=== PATIENT | male | born 1940 | race Caucasian/White ===

== ENCOUNTER 2019-07-07 15:41 | Inpatient (IN) | payer BC, MEDICARE ==
--- NOTE | 2019-07-07 16:27 | XRAY Report ---
Reason: cough with fever Procedure Date: 07/07/2019 Accession Number: [id number] / [id number] Procedure: XR - Chest 2 View X-Ray CPT Code: 29982 Final Report FULL RESULT: EXAM: CHEST RADIOGRAPHY EXAM DATE: 07/07/2019 04:21 PM. CLINICAL HISTORY: Cough with fever. COMPARISON: None. TECHNIQUE: 2 views. FINDINGS: Lungs/Pleura: No focal opacities evident. No pleural effusion. No pneumothorax. No pulmonary vascular congestion or interstitial edema. Normal volumes. Mediastinum: The cardiac silhouette size is normal. Tortuous thoracic aorta. Other: Multilevel thoracic spondylosis. Multiple healed posterior lateral left rib fractures. IMPRESSION: No radiographic evidence of acute cardiopulmonary disease. RADIA
[2019-07-07 16:50] LABS: BASOPHILS % (AUTO) 0.3 %; EOSINOPHILS # (AUTO) 0.1 10^3/uL (0.0-0.7); EOSINOPHILS % (AUTO) 1.5 %; HGB - HEMOGLOBIN 12.1 g/dL (14.0-18.0); LYMPHOCYTES % (AUTO) 14.9 %; MEAN CORPUSCULAR HEMOGLOBIN 32.1 pg (27.0-31.0); MEAN CORPUSCULAR HGB CONC 33.8 g/dL (32.0-36.0); MEAN PLATELET VOLUME 9.4 fL (7.4-11.4); MONOCYTES # (AUTO) 0.8 10^3/uL (0.0-1.0); MONOCYTES % (AUTO) 11.2 %; NEUTROPHILS # (AUTO) 4.8 10^3/uL (1.5-6.6); PLT - PLATELET COUNT 153 10^3/uL (130-450); RED BLOOD COUNT 3.77 10^6/uL (4.70-6.10); RED CELL DISTRIBUTION WIDTH 13.5 % (12.0-15.0); WHITE BLOOD COUNT 6.7 x10^3/uL (4.8-10.8)
[2019-07-07 17:05] LABS: ALBUMIN 3.9 g/dL (3.2-5.5); ALBUMIN/GLOBULIN RATIO 0.9 (1.0-2.2); BILIRUBIN,TOTAL 0.8 mg/dL (0.2-1.0); CALCIUM 8.4 mg/dL (8.5-10.3); CREATININE 0.8 mg/dL (0.6-1.2); TOTAL PROTEIN 8.2 g/dL (6.7-8.2)
[2019-07-07 17:26] LABS: BILIRUBIN,URINE NEGATIVE (NEGATIVE); GLUCOSE, URINE (UA) NEGATIVE (NEGATIVE); KETONES,URINE (UA) TRACE mg/dL (NEGATIVE); LEUKOCYTE ESTERASE, URINE NEGATIVE (NEGATIVE); NITRITE,URINE NEGATIVE (NEGATIVE); OCCULT BLOOD,URINE TRACE-INTA (NEGATIVE); PROTEIN,URINE TRACE mg/dL (NEGATIVE); UROBILINOGEN,URINE 0.2 (NORMAL) E.U./dL (NORMAL)
[2019-07-07 17:29] LABS: CLARITY,URINE CLEAR (CLEAR)
[2019-07-07] MEDS ORDERED: SODIUM CHLORIDE 0.9% 1,000 ML IV ONE ×2 (17:42→20:00)
[2019-07-07] MEDS ORDERED: ONDANSETRON 4 MG/2 ML VIAL IVP STA ×2 (18:13→20:03)
--- NOTE | 2019-07-07 18:14 | ED Physician Documentation ---
History of Present Illness - Stated complaint Stated Complaint: VOMITING X4 DAYS, POSSIBLE PN - PCP REFERRAL - Chief complaint Chief Complaint: Resp - History obtained from History obtained from: Patient, Family - History of Present Illness Timing: How many days ago (4) Pain level max: 0 Pain level now: 0 - Additonal information Additional information: 78-year-old male presents to the emergency department today with nausea and vomiting for the past 4 days. Nothing makes it better or worse. He feels weak and dehydrated. Also has a cough. Intermittent fevers up to 101 at home. No chest pain. No abdominal pain. No diarrhea. Saw his doctor today who referred him here for possible pneumonia. Review of Systems Ten Systems: 10 systems reviewed and negative Constitutional: reports: Fever, Chills Nose: denies: Rhinorrhea / runny nose, Congestion Respiratory: denies: Cough GI: reports: Nausea, Vomiting, Diarrhea Skin: denies: Rash Musculoskeletal: denies: Neck pain, Back pain Neurologic: denies: Headache PD PAST MEDICAL HISTORY - Past Medical History Past Medical History: Yes Cardiovascular: High cholesterol Respiratory: Sleep apnea, CPAP use Neuro: None Endocrine/Autoimmune: HyPOthyroidism GI: Chronic constipation : Benign prostate hypertrophy HEENT: Chronic vision loss, Glaucoma Psych: None Musculoskeletal: Osteoarthritis, Chronic back pain Derm: Psoriasis - Past Surgical History Past Surgical History: Yes General: Colonoscopy, Other HEENT: Cataracts - Present Medications Home Medications: Ambulatory Orders Medication Instructions Recorded Confirmed Ascorbic Acid [Vitamin C] 500 mg PO DAILY 10/13/12 01/03/15 Aspirin Chewable [St Amaury 81 mg PO ONCE 10/13/12 01/03/15 Aspirin] Cholecalciferol (Vitamin D3) 2,000 unit PO DAILY 10/13/12 01/03/15 [Vitamin D-3] Glucosamine Sulfate Dipot Chlr 1,000 mg PO DAILY 10/13/12 01/03/15 [Glucosamine] Levothyroxine [Synthroid] 50 mcg PO QDAC 10/13/12 01/03/15 Rosuvastatin Calcium [Crestor] 5 mg PO DAILY 10/13/12 01/03/15 Tadalafil [Cialis] 2.5 mg PO DAILY 10/13/12 01/03/15 Calcium Carbonate [Calcium] 600 mg PO DAILY 01/03/15 01/03/15 Clindamycin Phosphate 60 ml TP DAILY 01/03/15 01/03/15 Dorzolamide HCl/Timolol Maleat 10 ml OP DAILY 01/03/15 01/03/15 [Dorzolamide-Timolol Eye Drops] Iron,Carb/Vit C/Vit B12/Folic 1 each PO DAILY 01/03/15 01/03/15 [Iron 100 Plus Tablet] Magnesium Oxide [Magnesium] 250 mg PO DAILY 01/03/15 01/03/15 Metronidazole [Metrocream] 45 gm TP DAILY 01/03/15 01/03/15 [place]-3 Fatty Acids [Fish Oil] 300 mg PO DAILY 01/03/15 01/03/15 - Allergies Allergies/Adverse Reactions: Allergies Allergy/AdvReac Type Severity Reaction Status Date / Time tetracycline [Tetracycline] AdvReac Mild Anxiety Verified 10/13/12 07:53 - Social History Does the pt smoke?: No Smoking Status: Never smoker Does the pt drink ETOH?: No Does the pt have substance abuse?: No PD ED PE NORMAL - Vitals Vital signs reviewed: Yes - General General: Alert and oriented X 3, No acute distress, Well developed/nourished - HEENT HEENT: Moist mucous membranes - Neck Neck: Supple, no meningeal sign - Cardiac Cardiac: RRR, Strong equal pulses - Respiratory Respiratory: Other (rhonchi B) - Abdomen Abdomen: Soft, Non tender, Non distended - Back Back: No spinal TTP - Derm Derm: Warm and dry, No rash - Extremities Extremities: No edema - Neuro Neuro: Alert and oriented X 3 - Psych Psych: Normal mood, Normal affect Results - Vitals Vitals: Vital Signs - 24 hr 07/07/19 07/07/19 07/07/19 15:58 18:05 18:44 Temperature 37.7 C H 38.5 C H Heart Rate 94 93 Respiratory 18 16 Rate Blood Pressure 132/65 H 113/67 O2 Saturation 94 93 88 L 07/07/19 07/07/19 18:45 18:47 Temperature Heart Rate Respiratory Rate Blood Pressure O2 Saturation 86 L 99 Oxygen O2 Source Nasal cannula - Labs Labs: Laboratory Tests 07/07/19 07/07/19 07/07/19 16:20 16:42 16:42 WBC 6.7 RBC 3.77 L Hgb 12.1 L Hct 35.8 L MCV 95.0 H MCH 32.1 H MCHC 33.8 RDW 13.5 Plt Count 153 MPV 9.4 Neut # (Auto) 4.8 Lymph # (Auto) 1.0 L [place] # (Auto) 0.8 Eos # (Auto) 0.1 Baso # (Auto) 0.0 Absolute Nucleated RBC 0.00 Nucleated RBC % 0.0 Sodium 134 L Potassium 3.7 Chloride 96 L Carbon Dioxide 28 Anion Gap 10.0 BUN 18 Creatinine 0.8 Estimated GFR (MDRD) 93 Glucose 130 H Lactic Acid Calcium 8.4 L Total Bilirubin 0.8 AST 35 ALT 31 Alkaline Phosphatase 43 Total Protein 8.2 Albumin 3.9 Globulin 4.3 H Albumin/Globulin Ratio 0.9 L Lipase 28 Urine Color DARK YELLOW Urine Clarity CLEAR Urine pH 6.0 Ur Specific [place] 1.025 Urine Protein TRACE Urine Glucose (UA) NEGATIVE Urine Ketones TRACE Urine Occult Blood TRACE-INTA Urine Nitrite NEGATIVE Urine Bilirubin NEGATIVE Urine Urobilinogen 0.2 (NORMAL) Ur Leukocyte Esterase NEGATIVE Ur Microscopic Review NOT INDICATED Urine Culture Comments NOT INDICATED Influenza A (Rapid) Influenza B (Rapid) 07/07/19 07/07/19 19:00 19:13 WBC RBC Hgb Hct MCV MCH MCHC RDW Plt Count MPV Neut # (Auto) Lymph # (Auto) [place] # (Auto) Eos # (Auto) Baso # (Auto) Absolute Nucleated RBC Nucleated RBC % Sodium Potassium Chloride Carbon Dioxide Anion Gap BUN Creatinine Estimated GFR (MDRD) Glucose Lactic Acid 1.2 Calcium Total Bilirubin AST ALT Alkaline Phosphatase Total Protein Albumin Globulin Albumin/Globulin Ratio Lipase Urine Color Urine Clarity Urine pH Ur Specific [place] Urine Protein Urine Glucose (UA) Urine Ketones Urine Occult Blood Urine Nitrite Urine Bilirubin Urine Urobilinogen Ur Leukocyte Esterase Ur Microscopic Review Urine Culture Comments Influenza A (Rapid) POSITIVE H Influenza B (Rapid) Negative - Rads (name of study) cxr Radiology: Prelim report reviewed, EMP read contemporaneously, See rad report (No radiographic evidence of acute cardiopulmonary disease. ) PD MEDICAL DECISION MAKING - ED course Complexity details: reviewed results, re-evaluated patient, considered differential, d/w patient ED course: Patient is positive for influenza A. He is hypoxic, 86% on room air in the and is not tolerating p.o. very well. Given Tamiflu here. We will hold antibiotics at this time. No pneumonia on chest x-ray. Discussed the case with Dr. Shen, hospitalist who accepts This document was made in part using voice recognition software. While efforts are made to proofread this document, sound alike and grammatical errors may occur. Departure - Departure Disposition: 66 [facility] DC/Xfer Clinical Impression: Hypoxia, Influenza A Fever Qualifiers: Fever type: unspecified Qualified Code(s): R50.9 - Fever, unspecified Condition: Stable
[2019-07-07] MEDS ORDERED: BENZONATATE 100 MG CAPSULE PO STA (18:32)
[2019-07-07] MEDS ORDERED: OSELTAMIVIR 75 MG CAPSULE PO STA (20:17)
[2019-07-07] MEDS ORDERED: oxyCODONE 5 MG TABLET PO PRN (20:18)
[2019-07-07] MEDS ORDERED: ONDANSETRON 4 MG/2 ML VIAL IVP PRN (20:18)
[2019-07-07] MEDS ORDERED: ONDANSETRON ODT 4 MG TABLET TL PRN (20:18)
[2019-07-07] MEDS ORDERED: SODIUM CHLORIDE FLUSH 0.9% 10 ML SYRINGE IVP PRN (20:18)
--- NOTE | 2019-07-07 20:31 | HISTORY & PHYSICAL EXAMINATION ---
Chief Complaint - Chief Complaint Chief Complaint: vomitting for 4 days History of Present Illness - Admitted From Admitted From:: Home/ER - History Obtained From Records Reviewed: [facility] History obtained from: Dr. Christina and patient Exam Limitations: none - History of Present Illness HPI Comment/Other: 78-year-old white male whose main medical issues consist of obstructive sleep apnea and hypertension but is otherwise healthy and now presents with myalgias, vomiting for 4 days abrupt in onset. Fevers have been as high as 101. Dry nonproductive cough. Anorexia is present but no diarrhea or abdominal pain. This illness is the most recent manifestation of what he feels is a cold that started 10 days ago. Sore throat, rhinorrhea, sinus congestion, coryza and eustachian tube dysfunction all resolved after starting 10 days ago. Seemed to have a couple of days of wellness and then this most recent illness started. 2 days ago he was so weak with a lack of p.o. intake, and the vomiting that he slipped to the floor in the bathroom trying to get off the toilet. Needed his son and his grandson to get him up. No one else is sick but him. He has not had any recent travel history. He was seen by his PCP today who referred him to the emergency room to make sure he did not have pneumonia. He was evaluated by Dr. Padilla and his temperature is 38.5 in the emergency room with a heart rate in the 90s. Respirations are 16-18. Normotensive at 132/65 but he is hypoxic to 88% on room air. White cell count is normal. And chest x-ray has no acute cardiopulmonary changes. He is, however, positive for influenza A. He is now admitted for hypoxia in the face of influenza. History - Past Medical History Cardiovascular: reports: Hypertension, High cholesterol Respiratory: reports: Sleep apnea, CPAP use Neuro: reports: None Endocrine/Autoimmune: reports: HyPOthyroidism GI: reports: Chronic constipation : reports: Benign prostate hypertrophy HEENT: reports: Chronic vision loss, Glaucoma Psych: reports: None Musculoskeletal: reports: Osteoarthritis, Chronic back pain Derm: reports: Psoriasis MRSA Hx?: Yes - Past Surgical History General: reports: Colonoscopy, Other (umbilical hernia repair) HEENT: reports: Cataracts, Tonsil/Adenoidectomy (age 5) - Family & Social History Family History Comment/Other: Mom at age 85 of a stroke. Dad at age 85 of complications of alcoholism, hypertension, and an unknown type of cancer. 1 [facility] is alive and [facility]. 2 children. Both sons. One son is slightly overweight, and unfortunately the second son has problems with alcoholism. Living arrangement: At home Living Situation: With spouse/s.o. Social History Notes: Most of his life is spent in [facility] in [place]. He still over the [employer] from [id number]. Has been twice. First marriage "did not take" but he did have 2 children with his first . his second and she brought 2 children with her. So they had a combined household of 4 children. He smoked only when he was in the [employer] for 3 years. Has never had a problem with alcohol abuse or recreational substance abuse. 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 He retired and moved to [facility] 20 years ago. They wanted to be closer to their son because their grandchildren were here. He and his both live in their own home, still very independent. He says that they are surrounded by a carissa grandchildren and great-grandchildren. They are looking forward to their first great great grandchild but his youngest great-grandchild is only 14. - Substance History Use: Uses substance without health or social issues: NONE Abuse: Recurrent use of substance despite neg consequences: NONE Dependence: Experiences withdrawal or developed tolerances: NONE - POLST Patient has POLST: No POLST Status: Full Code (He has advanced directive that needs to be brought in and copied) Meds/Allgy - Home Medications Home Medications: Ambulatory Orders Medication Instructions Recorded Confirmed Ascorbic Acid [Vitamin C] 500 mg PO DAILY 10/13/12 01/03/15 Aspirin Chewable [St Amaury 81 mg PO ONCE 10/13/12 01/03/15 Aspirin] Cholecalciferol (Vitamin D3) 2,000 unit PO DAILY 10/13/12 01/03/15 [Vitamin D-3] Glucosamine Sulfate Dipot Chlr 1,000 mg PO DAILY 10/13/12 01/03/15 [Glucosamine] Levothyroxine [Synthroid] 50 mcg PO QDAC 10/13/12 01/03/15 Rosuvastatin Calcium [Crestor] 5 mg PO DAILY 10/13/12 01/03/15 Tadalafil [Cialis] 2.5 mg PO DAILY 10/13/12 01/03/15 Calcium Carbonate [Calcium] 600 mg PO DAILY 01/03/15 01/03/15 Clindamycin Phosphate 60 ml TP DAILY 01/03/15 01/03/15 Dorzolamide HCl/Timolol Maleat 10 ml OP DAILY 01/03/15 01/03/15 [Dorzolamide-Timolol Eye Drops] Iron,Carb/Vit C/Vit B12/Folic 1 each PO DAILY 01/03/15 01/03/15 [Iron 100 Plus Tablet] Magnesium Oxide [Magnesium] 250 mg PO DAILY 01/03/15 01/03/15 Metronidazole [Metrocream] 45 gm TP DAILY 01/03/15 01/03/15 [place]-3 Fatty Acids [Fish Oil] 300 mg PO DAILY 01/03/15 01/03/15 - Allergies Allergies/Adverse Reactions: Allergies Allergy/AdvReac Type Severity Reaction Status Date / Time tetracycline [Tetracycline] AdvReac Mild Anxiety Verified 10/13/12 07:53 Review of Systems - Constitutional Constitutional: reports: Fatigue, Fever, Chills, Malaise, Weakness, Poor appetite, Diaphoresis, Other (All of these complaints have been acute in the last 4 to 5 days.) - Eyes Eyes: denies: Pain, Irritation, Amaurosis, Blurred vision, Vision loss - Ears, Nose & Throat Ears, Nose & Throat: reports: Hoarseness. denies: Ear pain, Vertigo, Nasal pain, Nasal discharge - Cardiovascular Cariovascular: reports: Lightheadedness, Exertional dyspnea, Decr. exercise tolerance. denies: Irregular heart rate, Palpitations, Chest pain, Edema, Syncope - Respiratory Respiratory: reports: Cough, Snoring, SOB at rest, SOB with exertion, Apnea. denies: Sputum production, Wheezing - Gastrointestinal Gastrointestinal: denies: Abdominal pain, Abdominal distention, Constipation, Diarrhea - Genitourinary Genitourinary: reports: Nocturia. denies: Dysuria, Frequency - Musculoskeletal Musculoskeletal: reports: Muscle pain (the last few days), Muscle weakness (the last 2 days), Joint pain (especially in knees, but this is the only joint ache that slows him down overall) - Integumentary Integumentary: denies: Rash, Pruritis - Neurological Neurological: reports: General weakness. denies: Focal weakness, Headache, Dizziness, Memory problems, Pre-existing deficit, Seizures - Psychiatric Psychiatric: denies: Depression, Anxiety, Suicidal - Endocrine Endocrine: denies: Polyuria, Polydypsia - Hematologic/Lymphatic Hematologic/Lymphatic: denies: Anemia, Bruising, Petechiae Prior Level of Functionality: He regards himself is independent. He uses no durable medical equipment. Still drives a car. Pays his own bills. Is able to complete all his activities of daily living without any assist. Lives with his in their own home. Exam - Vital Signs Reviewed Vital Signs: Yes Vital Signs: Vital Signs x48h Temp Pulse Resp BP Pulse Ox 07/07/19 18:47 99 07/07/19 18:45 86 L 07/07/19 18:44 88 L 07/07/19 18:05 38.5 C H 93 16 113/67 93 07/07/19 15:58 37.7 C H 94 18 132/65 H 94 - Physical Exam General Appearance: positive: No acute distress, Alert, Other (Very fatigued appearing elderly gentleman who looks stated age and is in no acute distress but very dry) Eyes Bilateral: positive: PERRL, EOMI ENT: positive: Dry mucous membranes, Other (Hoarse voice, slightly nasal tone) Neck: positive: No JVD, Lymphadenopathy (R) (Shotty), Lymphadenopathy (L) (Shotty). negative: Stiff neck, Carotid bruit Respiratory: positive: Chest non-tender. negative: Wheezes, Rales, Rhonchi Cardiovascular: positive: Regular rate & rhythm. negative: Systolic murmur, Gallop/S4 Peripheral Pulses: positive: 1+ Abdomen: positive: Non-tender, No organomegaly, Nml bowel sounds, No distention Skin: positive: Warm, Dry, Other (Has a slight skin abrasion over his right eyebrow, and a round Band-Aid on his right zygomatic arch. Recently seen by his scrummaster for "burning off some things") Extremities: positive: Non-tender, No pedal edema, Other (Hands are cold with the right hand colder than the left. Feet are warm. Overall skin is warm.) Neurologic/Psychiatric: positive: Oriented x3, CN's nml (2-12), Motor nml Conclusion/Plan - Problem List (1) Influenza A Conclusion/Plan: Supportive care at this time for this elderly gentleman who is hypoxic with his influenza. He received IV fluids to replace any insensate fluid losses with someone who is short of breath and febrile. He will receive antipyretics, antiemetics. Start on Tamiflu twice daily for 9 more doses since he is received 1 dose in the emergency room. At this time no empiric antibiotics since chest x-ray is negative. He will be at risk for staph pneumonia and will be closely monitored. (2) Hypoxia Conclusion/Plan: Supplement with nasal cannula oxygenation to maintain O2 sats greater than 92%. Continue to monitor closely for possible complications such as staph pneumonia. (3) Dehydration Conclusion/Plan: Present on physical exam. BUN and creatinine are normal. He has had minimal p.o. intake for the last few days. Plan: IV fluids, monitor intake and output, will stop IV fluids once he is eating and drinking enough on his own - Lab Results Lab results reviewed: Yes Fish Bones: 07/07/19 16:42 07/07/19 16:42 - Diagnostic Imaging Results Diagnostic Imaging Results: positive: Final report reviewed Diagnostic Imaging Results Comments: Chest x-ray without acute cardiopulmonary process Core Measures - Anticipated LOS I expect patient to be DC'd or transferred within 96 hours.: Yes - DVT/VTE - Prophylaxis VTE/DVT Device ordered at admit?: Yes
[2019-07-07] MEDS: ACETAMINOPHEN 325 MG TABLET PO SCH (21:25)
[2019-07-07] MEDS: SODIUM CHLORIDE 0.9% 1,000 ML IV SCH (21:25)
[2019-07-07] MEDS ORDERED: guaiFENesin/CODEINE 5 ML UDC PO STA (21:46)
[2019-07-07] MEDS ORDERED: PROCHLORPERAZINE 10 MG/2 ML VIAL IVP PRN (21:46)
--- NOTE | 2019-07-07 21:51 | HISTORY & PHYSICAL EXAMINATION ---
Chief Complaint - Chief Complaint Chief Complaint: Nausea and vomiting, cough History of Present Illness - Admitted From Admitted From:: Emergency room - History Obtained From Records Reviewed: Yes History obtained from: Patient and chart Exam Limitations: None - History of Present Illness HPI Comment/Other: Mr. Lentz is a 78 year old gentleman with a PMH of [place] wears CPAP at night, hypothyroid, hypertension, hypercholestemia who presents with vomiting and nausea for the last 4-5 days with productive cough. He reports that 10-12 days ago he developed a cold. The could went and away and then came with a worsening productive cough and nausea and vomiting. Patient then became dehydrated and fell off the toilet. He did not hit his head, but his son who lives near by had to come over and help him up. In the ER, the patient was hypoxic to 88% on room air, and has need O2 per nasal cannula to keep his sats above 92%. T-max was 38.5. Labs notable for mid hyponatremia 134, potassium 3.7, Hgb/Hct 12.1/358, WBC 6.7, Lactate 1.2, glucose 130. Influenza A positive. Chest x-ray with no radiographic evidence of acute pulmonary disease. Patient given 1L NS, a dose of tamiflu. Will admit to inpatient. History - Past Medical History Cardiovascular: reports: Hypertension, High cholesterol Respiratory: reports: Sleep apnea, CPAP use Neuro: reports: None Endocrine/Autoimmune: reports: HyPOthyroidism GI: reports: Chronic constipation : reports: Benign prostate hypertrophy HEENT: reports: Chronic vision loss, Glaucoma Psych: reports: None Musculoskeletal: reports: Osteoarthritis, Chronic back pain Derm: reports: Psoriasis MRSA Hx?: No - Past Surgical History General: reports: Colonoscopy, Other (umbilical hernia repair) HEENT: reports: Cataracts, Tonsil/Adenoidectomy (age 5) Derm: reports: Other (Skin biopsy to right zygomatic arch recent-with bandaid covering.) - Family & Social History Family History: Mother: , CVA/TIA, Father: , Alcoholism, Cancer, Hypertension Living arrangement: At home Living Situation: With spouse/s.o. - Substance History Use: Uses substance without health or social issues: Tobacco (Former tobacco smoker when he was in the [employer]-3 years), Alcohol (1-2 drinks per month when he goes out to dinner.) Abuse: Recurrent use of substance despite neg consequences: NONE - POLST Patient has POLST: No POLST Status: Full Code Meds/Allgy - Home Medications Home Medications: Ambulatory Orders Medication Instructions Recorded Confirmed Ascorbic Acid [Vitamin C] 500 mg PO DAILY 10/13/12 01/03/15 Aspirin Chewable [St Amaury 81 mg PO ONCE 10/13/12 01/03/15 Aspirin] Cholecalciferol (Vitamin D3) 2,000 unit PO DAILY 10/13/12 01/03/15 [Vitamin D-3] Glucosamine Sulfate Dipot Chlr 1,000 mg PO DAILY 10/13/12 01/03/15 [Glucosamine] Levothyroxine [Synthroid] 50 mcg PO QDAC 10/13/12 01/03/15 Rosuvastatin Calcium [Crestor] 5 mg PO DAILY 10/13/12 01/03/15 Tadalafil [Cialis] 2.5 mg PO DAILY 10/13/12 01/03/15 Calcium Carbonate [Calcium] 600 mg PO DAILY 01/03/15 01/03/15 Clindamycin Phosphate 60 ml TP DAILY 01/03/15 01/03/15 Dorzolamide HCl/Timolol Maleat 10 ml OP DAILY 01/03/15 01/03/15 [Dorzolamide-Timolol Eye Drops] Iron,Carb/Vit C/Vit B12/Folic 1 each PO DAILY 01/03/15 01/03/15 [Iron 100 Plus Tablet] Magnesium Oxide [Magnesium] 250 mg PO DAILY 01/03/15 01/03/15 Metronidazole [Metrocream] 45 gm TP DAILY 01/03/15 01/03/15 [place]-3 Fatty Acids [Fish Oil] 300 mg PO DAILY 01/03/15 01/03/15 Desonide [Desowen] 07/07/19 Ezetimibe/Simvastatin 1 each PO 07/07/19 [Ezetimibe-Simvastatin 10-20 mg] Metronidazole 1% Gel [Metrogel] 07/07/19 Trospium Chloride [Trospium 07/07/19 Chloride ER] - Allergies Allergies/Adverse Reactions: Allergies Allergy/AdvReac Type Severity Reaction Status Date / Time tetracycline [Tetracycline] AdvReac Mild Anxiety Verified 10/13/12 07:53 Review of Systems - Constitutional Constitutional: reports: Fatigue, Fever, Weakness, Poor appetite - Eyes Eyes: reports: Vision loss, Corrective lenses - Ears, Nose & Throat Ears, Nose & Throat: reports: Sore throat, Hoarseness - Cardiovascular Cariovascular: denies: Irregular heart rate, Edema - Respiratory Respiratory: reports: Cough, Sputum production. denies: Wheezing, Hemoptysis - Gastrointestinal Gastrointestinal: reports: Nausea, Vomiting, Poor appetite. denies: Diarrhea - Genitourinary Genitourinary: reports: Other (See urologist for incontinence of urine) - Musculoskeletal Musculoskeletal: reports: Back pain, Joint pain - Integumentary Integumentary: reports: Lesions (Skin biopsy site to right zygomatic arch by planning coordinator recently. Sees Drier every 6 months.) - Neurological Neurological: denies: Numbness, Seizures - Psychiatric Psychiatric: denies: Depression, Anxiety - Endocrine Endocrine: denies: Polyuria, Polydypsia - All Other Systems All Other Systems: reports: Reviewed and negative Prior Level of Functionality: Patient lives in a house with his . He drives, shops, pays bills and keeps u p his home. Exam - Vital Signs Reviewed Vital Signs: Yes Vital Signs: Vital Signs x48h Temp Pulse Pulse Resp BP BP Pulse Ox 07/07/19 21:00 38.3 C H 103 H 24 101/51 L 97 07/07/19 18:47 99 07/07/19 18:45 86 L 07/07/19 18:44 88 L 07/07/19 18:05 38.5 C H 93 16 113/67 93 07/07/19 15:58 37.7 C H 94 18 132/65 H 94 - Physical Exam General Appearance: positive: No acute distress, Alert Eyes Bilateral: positive: Normal inspection, PERRL, EOMI ENT: positive: ENT inspection nml Neck: positive: Nml inspection, Trachea midline Respiratory: positive: Chest non-tender, No respiratory distress, Breath sounds nml, Other (Strong and productive cough) Cardiovascular: positive: Regular rate & rhythm, No murmur, No gallop Peripheral Pulses: positive: 2+ Abdomen: positive: Non-tender, Nml bowel sounds, No distention Back: positive: Nml inspection Skin: positive: Color nml, Other (Hands cool R>L, feet warm) Extremities: positive: Full ROM, Nml appearance Neurologic/Psychiatric: positive: Oriented x3, Mood/affect nml Conclusion/Plan - Problem List (1) Influenza A Conclusion/Plan: Patient started with a cold 10-12 days ago, which he reports 'went away' and then came with a productive cough. Patient had nausea/vomiting and became dehydrated. Influenza A positive. First dose of tamiflu given in the ER. 1. Treat with tamiflu BID for 48 hours. 2. Provide supportive care with IV fluids, cough suppressant, routine tylenol. (2) Hypoxia Conclusion/Plan: Patient has had a productive cough for 4-5 days. He has a hoarse voice and sore throat. Nausea/vomiting for several days. O2 sats in the ER on room air was 88%. Chest x-ray had no evidence of pulmonary disease. 1. O2 per nasal cannula to keep sats greater than 92%. 2. Cough suppressant for comfort. 3. Monitor patient's O2 sat every 8 hours. 4. Consider additional chest x-ray if patient has desaturation on supplemental oxygen. 5. Bleed in oxygen to patient's home CPAP (patient wears for [place]). (3) Obstructive sleep apnea on CPAP Conclusion/Plan: Patient's brought in his home CPAP machine. 1. RT to set up and bleed in oxygen to keep sats >92%. 2. Patient to wear while sleeping. (4) Dehydration Conclusion/Plan: Patient reports decrease in appetite, nausea/vomiting for 4-5 days. He believes that the dehydration led to him falling off the toilet, requiring his son to have to come to his house and help him up. Patient's oral mucosa appears moist. Urine sample dark and concentrated. Patient hyponatremic. Patient received 1L NS per IV in the ER. 1. Continue IV hydration with NS at 100ml/hr. 2. Encourage oral hydration and have fluids available at bedside for patient to consume. 3. Strict I&Os. (5) Fever Conclusion/Plan: T-max 38.5 in the ER. 1. Routine tylenol for patient. 2. IV fluid hydration and oral hydration to prevent volume depletion from insensible losses. Qualifiers: Fever type: unspecified Qualified Code(s): R50.9 - Fever, unspecified - Lab Results Lab results reviewed: Yes Fish Bones: 07/07/19 16:42 07/07/19 16:42 - Diagnostic Imaging Results Diagnostic Imaging Results: positive: Final report reviewed, See rad report
[2019-07-08] MEDS: ACETAMINOPHEN 325 MG TABLET PO SCH ×4 (03:16→20:15)
[2019-07-08] MEDS: SODIUM CHLORIDE FLUSH 0.9% 10 ML SYRINGE IVP SCH ×3 (03:21→17:43)
[2019-07-08] MEDS: SODIUM CHLORIDE 0.9% 1,000 ML IV SCH ×2 (06:02→14:16)
[2019-07-08] MEDS: LEVOTHYROXINE 25 MCG TABLET PO SCH (06:04)
[2019-07-08] MEDS: BENZOCAINE/MENTHOL LOZENGE MM PRN ×3 (06:07→20:19)
[2019-07-08] MEDS: OSELTAMIVIR 75 MG CAPSULE PO SCH ×2 (08:51→20:16)
[2019-07-08 09:17] LABS: BASOPHILS % (AUTO) 0.2 %; HGB - HEMOGLOBIN 10.8 g/dL (14.0-18.0); LYMPHOCYTES # (AUTO) 1.5 10^3/uL (1.5-3.5); LYMPHOCYTES % (AUTO) 29.1 %; MEAN CORPUSCULAR HEMOGLOBIN 31.6 pg (27.0-31.0); MEAN CORPUSCULAR VOLUME 95.6 fL (80.0-94.0); MEAN PLATELET VOLUME 10.1 fL (7.4-11.4); MONOCYTES # (AUTO) 0.8 10^3/uL (0.0-1.0); MONOCYTES % (AUTO) 15.6 %; NEUTROPHILS # (AUTO) 2.7 10^3/uL (1.5-6.6); NEUTROPHILS % (AUTO) 54.9 %; PLT - PLATELET COUNT 148 10^3/uL (130-450); RED BLOOD COUNT 3.42 10^6/uL (4.70-6.10); RED CELL DISTRIBUTION WIDTH 13.5 % (12.0-15.0)
[2019-07-08 09:29] LABS: CALCIUM 7.5 mg/dL (8.5-10.3); CREATININE 0.6 mg/dL (0.6-1.2); MAGNESIUM 1.9 mg/dL (1.7-2.8); PHOSPHORUS 1.9 mg/dL (2.5-4.6)
[2019-07-08] MEDS ORDERED: NEUTRA-PHOS 250 MG TABLET PO SCH (10:00)
[2019-07-08] MEDS ORDERED: POTASSIUM CHLORIDE 20 MEQ TABLET PO ONE (10:14)
--- NOTE | 2019-07-08 10:47 | PROVIDER PROGRESS NOTE ---
Subjective - Prog Note Date Prog Note Date: 07/08/19 - Subjective Subjective: Ports feeling slightly better. He continues to require 1 L of oxygen via nasal cannula. Reports no chest pain but does complain of dyspnea and a cough that is nonproductive. Reports no abdominal pain. His nausea is also improved. He is able to tolerate breakfast this morning. Current Medications - Current Medications Current Medications: Active Medications Acetaminophen (Tylenol) 650 mg PO Q6H [facility] Stop: 07/09/19 15:01 Last Admin: 07/08/19 08:50 Dose: 650 mg Sodium Chloride (Normal Saline 0.9%) 1,000 mls @ 100 mls/hr IV .Q10H [facility] Last Admin: 07/08/19 06:02 Dose: 100 mls/hr Levothyroxine Sodium (Synthroid) 50 mcg PO QDAC [facility] Last Admin: 07/08/19 06:04 Dose: 50 mcg Ondansetron HCl (Zofran Inj) 4 mg IVP Q6HR PRN PRN Reason: Nausea / Vomiting Ondansetron HCl (Zofran Odt) 4 mg TL Q6HR PRN PRN Reason: Nausea / Vomiting Oseltamivir Phosphate (Tamiflu) 75 mg PO BID [facility] Stop: 07/12/19 09:01 Last Admin: 07/08/19 08:51 Dose: 75 mg Oxycodone HCl (Roxicodone) 5 mg PO Q4HR PRN PRN Reason: Pain 5 to 7 Prochlorperazine Edisylate (Compazine Inj) 10 mg IVP Q6HR PRN PRN Reason: Nausea / Vomiting Last Admin: 07/07/19 21:57 Dose: 10 mg Sodium Chloride (Normal Saline Flush 0.9%) 10 ml IVP PRN PRN PRN Reason: NEEDED PER PROVIDER ORDERS Sodium Chloride (Normal Saline Flush 0.9%) 10 ml IVP 0100,0900,1700 [facility] Last Admin: 07/08/19 03:21 Dose: Not Given Throat Lozenges (Cepacol) 1 lozenge MM Q2HR PRN PRN Reason: Throat pain Last Admin: 07/08/19 06:07 Dose: 1 lozenge Ascorbic Acid [Vitamin C] 1,000 mg PO BID 10/13/12 Levothyroxine [Synthroid] 125 mcg PO DAILY 10/13/12 Rosuvastatin Calcium [Crestor] 5 mg PO .EVERY OTHER DAY 10/13/12 Tadalafil [Cialis] 5 mg PO DAILY PRN 10/13/12 Calcium Carbonate [Calcium] 600 mg PO DAILY 01/03/15 Dorzolamide HCl/Timolol Maleat [Dorzolamide-Timolol Eye Drops] 1 drops EACHEYE BID 01/03/15 Magnesium Oxide [Magnesium] 250 mg PO DAILY 01/03/15 Metronidazole [Metrocream] 45 gm TP DAILY 01/03/15 Desonide [Desowen] 07/07/19 Metronidazole 1% Gel [Metrogel] 07/07/19 Trospium Chloride [Trospium Chloride ER] 60 mg PO QPM 07/07/19 Cholecalciferol (Vitamin D3) [Vitamin D3] 3,000 unit PO DAILY 07/08/19 Ferrous Sulfate 325 mg PO DAILY 07/08/19 Glucosamine HCl 1,500 mg PO DAILY 07/08/19 [place]-3/Dha/Epa/Fish Oil [Fish Oil 1,000 mg Softgel] 1 cap PO BID 07/08/19 Ubidecarenone [Co Q-10] 100 mg PO DAILY 07/08/19 Objective - Vital Signs/Intake & Output Reviewed Vital Signs: Yes Vital Signs: Vital Signs x48h Temp Pulse Resp BP Pulse Ox 07/08/19 07:38 37.1 C 112 H 18 114/76 96 07/08/19 04:18 37.0 C 95 07/08/19 04:15 89 L Intake & Output: Intake & Output 07/05/19 07/06/19 07/07/19 07/08/19 23:59 23:59 23:59 23:59 Intake Total 1197 1480 Output Total 925 Balance 1197 555 - Objective General Appearance: positive: No acute distress, Alert Eyes Bilateral: positive: Normal inspection, Conjunctivae nml ENT: positive: ENT inspection nml, No signs of dehydration, Other (Nasal cannula in place.) Neck: positive: Nml inspection Respiratory: positive: No respiratory distress. negative: Wheezes, Rales, Rhonchi Cardiovascular: positive: No murmur, Tachycardia. negative: Bradycardia, Systolic murmur, Diastolic murmur Abdomen: positive: Non-tender, No distention. negative: Tenderness Skin: positive: No rash, Warm, Dry Extremities: positive: Full ROM, Pedal edema (Trace pitting edema in bilateral lower extremities.) Neurologic/Psychiatric: positive: Oriented x3. negative: Disoriented to person, Disoriented to place, Disoriented to time, Slurred/abnml speech - Lab Results Fish Bones: 07/08/19 08:05 07/08/19 08:05 Other Labs: Lab Results x24hrs 07/08/19 07/08/19 07/07/19 Range/Units 08:05 08:05 19:13 WBC 5.0 (4.8-10.8) x10^3/uL RBC 3.42 L (4.70-6.10) 10^6/uL Hgb 10.8 L (14.0-18.0) g/dL Hct 32.7 L (42.0-52.0) % MCV 95.6 H (80.0-94.0) fL MCH 31.6 H (27.0-31.0) pg MCHC 33.0 (32.0-36.0) g/dL RDW 13.5 (12.0-15.0) % Plt Count 148 (130-450) 10^3/uL MPV 10.1 (7.4-11.4) fL Neut # (Auto) 2.7 (1.5-6.6) 10^3/uL Lymph # (Auto) 1.5 (1.5-3.5) 10^3/uL [place] # (Auto) 0.8 (0.0-1.0) 10^3/uL Eos # (Auto) 0.0 (0.0-0.7) 10^3/uL Baso # (Auto) 0.0 (0.0-0.1) 10^3/uL Absolute Nucleated RBC 0.00 x10^3/uL Nucleated RBC % 0.0 /100WBC Sodium 136 (135-145) mmol/L Potassium 3.4 L (3.5-5.0) mmol/L Chloride 102 (101-111) mmol/L Carbon Dioxide 27 (21-32) mmol/L Anion Gap 7.0 (6-13) BUN 13 (6-20) mg/dL Creatinine 0.6 (0.6-1.2) mg/dL Estimated GFR (MDRD) 130 (>89) Glucose 136 H (70-100) mg/dL Lactic Acid 1.2 (0.5-2.2) mmol/L Calcium 7.5 L (8.5-10.3) mg/dL Phosphorus 1.9 L (2.5-4.6) mg/dL Magnesium 1.9 (1.7-2.8) mg/dL Total Bilirubin (0.2-1.0) mg/dL AST (10-42) IU/L ALT (10-60) IU/L Alkaline Phosphatase (42-121) IU/L Total Protein (6.7-8.2) g/dL Albumin (3.2-5.5) g/dL Globulin (2.1-4.2) g/dL Albumin/Globulin Ratio (1.0-2.2) Lipase (22-51) U/L Urine Color Urine Clarity (CLEAR) Urine pH (5.0-7.5) PH Ur Specific [place] (1.002-1.030) Urine Protein (NEGATIVE) mg/dL Urine Glucose (UA) (NEGATIVE) mg/dL Urine Ketones (NEGATIVE) mg/dL Urine Occult Blood (NEGATIVE) Urine Nitrite (NEGATIVE) Urine Bilirubin (NEGATIVE) Urine Urobilinogen (NORMAL) E.U./dL Ur Leukocyte Esterase (NEGATIVE) Ur Microscopic Review Urine Culture Comments Influenza A (Rapid) (Negative) Influenza B (Rapid) (Negative) 07/07/19 07/07/19 07/07/19 Range/Units 19:00 16:42 16:42 WBC 6.7 (4.8-10.8) x10^3/uL RBC 3.77 L (4.70-6.10) 10^6/uL Hgb 12.1 L (14.0-18.0) g/dL Hct 35.8 L (42.0-52.0) % MCV 95.0 H (80.0-94.0) fL MCH 32.1 H (27.0-31.0) pg MCHC 33.8 (32.0-36.0) g/dL RDW 13.5 (12.0-15.0) % Plt Count 153 (130-450) 10^3/uL MPV 9.4 (7.4-11.4) fL Neut # (Auto) 4.8 (1.5-6.6) 10^3/uL Lymph # (Auto) 1.0 L (1.5-3.5) 10^3/uL [place] # (Auto) 0.8 (0.0-1.0) 10^3/uL Eos # (Auto) 0.1 (0.0-0.7) 10^3/uL Baso # (Auto) 0.0 (0.0-0.1) 10^3/uL Absolute Nucleated RBC 0.00 x10^3/uL Nucleated RBC % 0.0 /100WBC Sodium 134 L (135-145) mmol/L Potassium 3.7 (3.5-5.0) mmol/L Chloride 96 L (101-111) mmol/L Carbon Dioxide 28 (21-32) mmol/L Anion Gap 10.0 (6-13) BUN 18 (6-20) mg/dL Creatinine 0.8 (0.6-1.2) mg/dL Estimated GFR (MDRD) 93 (>89) Glucose 130 H (70-100) mg/dL Lactic Acid (0.5-2.2) mmol/L Calcium 8.4 L (8.5-10.3) mg/dL Phosphorus (2.5-4.6) mg/dL Magnesium (1.7-2.8) mg/dL Total Bilirubin 0.8 (0.2-1.0) mg/dL AST 35 (10-42) IU/L ALT 31 (10-60) IU/L Alkaline Phosphatase 43 (42-121) IU/L Total Protein 8.2 (6.7-8.2) g/dL Albumin 3.9 (3.2-5.5) g/dL Globulin 4.3 H (2.1-4.2) g/dL Albumin/Globulin Ratio 0.9 L (1.0-2.2) Lipase 28 (22-51) U/L Urine Color Urine Clarity (CLEAR) Urine pH (5.0-7.5) PH Ur Specific [place] (1.002-1.030) Urine Protein (NEGATIVE) mg/dL Urine Glucose (UA) (NEGATIVE) mg/dL Urine Ketones (NEGATIVE) mg/dL Urine Occult Blood (NEGATIVE) Urine Nitrite (NEGATIVE) Urine Bilirubin (NEGATIVE) Urine Urobilinogen (NORMAL) E.U./dL Ur Leukocyte Esterase (NEGATIVE) Ur Microscopic Review Urine Culture Comments Influenza A (Rapid) POSITIVE H (Negative) Influenza B (Rapid) Negative (Negative) 07/07/19 Range/Units 16:20 WBC (4.8-10.8) x10^3/uL RBC (4.70-6.10) 10^6/uL Hgb (14.0-18.0) g/dL Hct (42.0-52.0) % MCV (80.0-94.0) fL MCH (27.0-31.0) pg MCHC (32.0-36.0) g/dL RDW (12.0-15.0) % Plt Count (130-450) 10^3/uL MPV (7.4-11.4) fL Neut # (Auto) (1.5-6.6) 10^3/uL Lymph # (Auto) (1.5-3.5) 10^3/uL [place] # (Auto) (0.0-1.0) 10^3/uL Eos # (Auto) (0.0-0.7) 10^3/uL Baso # (Auto) (0.0-0.1) 10^3/uL Absolute Nucleated RBC x10^3/uL Nucleated RBC % /100WBC Sodium (135-145) mmol/L Potassium (3.5-5.0) mmol/L Chloride (101-111) mmol/L Carbon Dioxide (21-32) mmol/L Anion Gap (6-13) BUN (6-20) mg/dL Creatinine (0.6-1.2) mg/dL Estimated GFR (MDRD) (>89) Glucose (70-100) mg/dL Lactic Acid (0.5-2.2) mmol/L Calcium (8.5-10.3) mg/dL Phosphorus (2.5-4.6) mg/dL Magnesium (1.7-2.8) mg/dL Total Bilirubin (0.2-1.0) mg/dL AST (10-42) IU/L ALT (10-60) IU/L Alkaline Phosphatase (42-121) IU/L Total Protein (6.7-8.2) g/dL Albumin (3.2-5.5) g/dL Globulin (2.1-4.2) g/dL Albumin/Globulin Ratio (1.0-2.2) Lipase (22-51) U/L Urine Color DARK YELLOW Urine Clarity CLEAR (CLEAR) Urine pH 6.0 (5.0-7.5) PH Ur Specific [place] 1.025 (1.002-1.030) Urine Protein TRACE (NEGATIVE) mg/dL Urine Glucose (UA) NEGATIVE (NEGATIVE) mg/dL Urine Ketones TRACE (NEGATIVE) mg/dL Urine Occult Blood [place] (NEGATIVE) Urine Nitrite NEGATIVE (NEGATIVE) Urine Bilirubin NEGATIVE (NEGATIVE) Urine Urobilinogen 0.2 (NORMAL) (NORMAL) E.U./dL Ur Leukocyte Esterase NEGATIVE (NEGATIVE) Ur Microscopic Review NOT INDICATED Urine Culture Comments NOT INDICATED Influenza A (Rapid) (Negative) Influenza B (Rapid) (Negative) ABX Reporting Has patient been on IV antibiotics over the past 48 hours?: No Assessment/Plan - Problem List (1) Influenza A Impression: He was febrile yesterday evening but has been afebrile throughout the day. He is receiving standing Tylenol which may mask the fevers. He overall reports feeling better but is still weak overall. He also is hypoxic requiring 1 L of oxygen. We will continue Tamiflu to complete 5 days of therapy. We will continue to monitor for signs of influenza complications including pneumonia. (2) Hypoxia Impression: Remains hypoxic requiring 1 L of oxygen which has improved from 2 L on admission. Initial chest x-ray was unremarkable. His lungs sound clear on examination. He does remain tachycardic in the low 100s. If hypoxia does not continue to improve, will consider either repeating imaging to rule out a new infiltrate or consider a CTA of the chest to rule out a pulmonary embolism given the tachycardia. For the time being, we will continue with supplemental oxygen for goal saturation greater than 92%. (3) Dehydration Impression: This has improved. He does not appear hypovolemic on exam. His renal function is at baseline. We will continue with IV fluids for the time being as his appetite improves. (4) Nausea Impression: This has improved and was likely secondary to influenza. He is not able to tolerate a diet. We will continue to his advance his diet as tolerated and will discontinue his IV fluids once his oral intake is adequate. We will continue with IV antiemetics as needed. (5) Obstructive sleep apnea on CPAP Impression: We will continue with CPAP therapy at night.
--- NOTE | 2019-07-08 11:45 | PHARMACY PROGRESS NOTE ---
- Best Possible Medication History Admit Date and Time: 07/07/192017 Processed by: Pharmacy Medication History completed: Yes Patient Interview: Completed Secondary Source(s): Physician records, Pharmacy records (patient's outpatient pharmacy contacted) As the person ultimately responsible for medication therapy, providers are able to order a medication from an existing home medication list in [facility] via the "Reconcile Routine" prior to Confirmation of that medication by community support associate. Such practice is discouraged except when the physician, in their clinical judgment, deems that a medical need exists for a medication without regard to p revious use.
[2019-07-09] MEDS: BENZOCAINE/MENTHOL LOZENGE MM PRN (00:12)
[2019-07-09] MEDS: SODIUM CHLORIDE 0.9% 1,000 ML IV SCH (00:13)
[2019-07-09] MEDS: ACETAMINOPHEN 325 MG TABLET PO SCH ×2 (02:43→08:28)
[2019-07-09] MEDS: SODIUM CHLORIDE FLUSH 0.9% 10 ML SYRINGE IVP SCH (02:44)
[2019-07-09 06:17] LABS: BASOPHILS % (AUTO) 0.5 %; EOSINOPHILS # (AUTO) 0.1 10^3/uL (0.0-0.7); EOSINOPHILS % (AUTO) 2.2 %; HGB - HEMOGLOBIN 10.5 g/dL (14.0-18.0); LYMPHOCYTES # (AUTO) 1.7 10^3/uL (1.5-3.5); LYMPHOCYTES % (AUTO) 26.4 %; MEAN CORPUSCULAR HEMOGLOBIN 31.6 pg (27.0-31.0); MEAN CORPUSCULAR HGB CONC 32.7 g/dL (32.0-36.0); MEAN CORPUSCULAR VOLUME 96.7 fL (80.0-94.0); MEAN PLATELET VOLUME 9.3 fL (7.4-11.4); MONOCYTES % (AUTO) 14.6 %; NEUTROPHILS # (AUTO) 3.6 10^3/uL (1.5-6.6); NEUTROPHILS % (AUTO) 55.8 %; PLT - PLATELET COUNT 142 10^3/uL (130-450); RED BLOOD COUNT 3.32 10^6/uL (4.70-6.10); RED CELL DISTRIBUTION WIDTH 13.4 % (12.0-15.0); WHITE BLOOD COUNT 6.5 x10^3/uL (4.8-10.8)
[2019-07-09 06:31] LABS: CALCIUM 7.3 mg/dL (8.5-10.3); CREATININE 0.7 mg/dL (0.6-1.2); PHOSPHORUS 2.6 mg/dL (2.5-4.6)
[2019-07-09] MEDS: LEVOTHYROXINE 25 MCG TABLET PO SCH (06:39)
[2019-07-09 08:16] VITALS: BP 111/61
[2019-07-09] MEDS: OSELTAMIVIR 75 MG CAPSULE PO SCH (08:28)
[2019-07-09] MEDS ORDERED: IOVERSOL 320 100 ML VIAL IVP ONE ×2 (08:39→09:12)
[2019-07-09] MEDS ORDERED: polyethylene glycoL 3350 17 GM PACKET PO SCH (09:00)
--- NOTE | 2019-07-09 09:06 | Discharge Plan ---
Discharge Plan Problem Reviewed?: Yes Disposition: Home, Self Care Condition: Good Prescriptions: Oseltamivir [Tamiflu] 75 mg PO BID #6 capsule Diet: Regular Activity Restrictions: Activity as Tolerated Shower Restrictions: No Driving Restrictions: No Instruction Topics: Flu, Bronchitis Acute Dc Health Concerns: You were seen in the hospital because you had influenza which made you weak and dehydrated. You were treated with Tamiflu and IV fluids. You initially required oxygen but your breathing has improved and you no longer need oxygen. We did a CT scan of your chest to look for blood clots and this was negative. You are now stable for discharge home. Plan of Treatment: Please take the Tamiflu as prescribed to complete 5 days of therapy. There were no other changes made to your medication. Care Goals: Please return to the emergency department if you develop worsening fevers, shortness of breath, chills. Assessment: Patient expressed understanding of the treatment plan. Additional Instructions or Follow Up instructions: Please follow-up with your primary care physician within 1 week. No Smoking: If you smoke, Please STOP! Call for help. Follow-up with: Diego Barker MD [Primary Care Provider] -
--- NOTE | 2019-07-09 10:04 | DISCHARGE SUMMARY ---
"Discharge Summary Admit Date: 07/07/19 Discharge Date: 07/09/19 Discharging Provider: John Lehman Primary Care Provider: Diego Barker Code Status: Attempt Resuscitation Condition at Discharge: Good Discharge Disposition: 01 Home, Self Care - DIAGNOSES Admission Diagnoses: Influenza A Hypoxia Dehydration Discharge Diagnoses with Status of Each Condition: Influenza A - improving. He is treated with Tamiflu while hospitalized with improvement in his symptoms. He had no more fevers although he was receiving Tylenol while hospitalized. He was prescribed Tamiflu to complete 5 days of therapy. He was asked to come [place] as needed as well as Tylenol for symptom control. There was no evidence of pneumonia on imaging while he was hospitalized. Hypoxia- resolved. This was secondary to the influenza. She had hypoxia req uiring 2 L of oxygen. Despite IV hydration he remained hypoxic and tachycardic in the 110s. A d-dimer was checked which was mildly elevated. He underwent a CTA of the chest which was negative for pulmonary embolism but did suggest bronchitis. He is now saturating well on room air. He was discharged to finish a course of Tamiflu and he was asked to take Robitussin as needed for his cough. Dehydration- resolved. Secondary to the influenza. He was treated with IV fluids. He is now tolerating a diet. Nausea - resolved. This was secondary to the influenza. He is now tolerating a diet. Obstructive sleep apnea on CPAP- stable. Continue home CPAP therapy. - HPI History of Present Illness: H&P per Dr. Shen on 07/07/2019: 78-year-old white male whose main medical issues consist of obstructive sleep apnea and hypertension but is otherwise healthy and now presents with myalgias, vomiting for 4 days abrupt in onset. Fevers have been as high as 101. Dry nonproductive cough. Anorexia is present but no diarrhea or abdominal pain. This illness is the most recent manifestation of what he feels is a cold that started 10 days ago. Sore throat, rhinorrhea, sinus congestion, coryza and eustachian tube dysfunction all resolved after starting 10 days ago. Seemed to have a couple of days of wellness and then this most recent illness started. 2 days ago he was so weak with a lack of p.o. intake, and the vomiting that he slipped to the floor in the bathroom trying to get off the toilet. Needed his son and his grandson to get him up. No one else is sick but him. He has not had any recent travel history. He was seen by his PCP today who referred him to the emergency room to make sure he did not have pneumonia. He was evaluated by Dr. Padilla and his temperature is 38.5 in the emergency room with a heart rate in the 90s. Respirations are 16-18. Normotensive at 132/65 but he is hypoxic to 88% on room air. White cell count is normal. And chest x-ray has no acute cardiopulmonary changes. He is, however, positive for influenza A. He is now admitted for hypoxia in the face of influenza. - CONSULTS | PROCEDURES Procedures: He underwent a CTA of the chest which was negative for pulmonary embolism. There was suggestive of bronchitis on imaging. No infiltrate. - HOSPITAL COURSE Hospital Course: He was admitted to the floor for dehydration and nausea secondary to influenza A. He was treated with Tamiflu and IV fluids. He also received antiemetics with improvement in his nausea. He was started on a diet which he tolerated well. He remained hypoxic requiring 2 L of oxygen and because he was tachycardic, a d-dimer was checked which was minimally elevated. A CTA of the chest was obtained which was negative for pulmonary embolism or infiltrate and was somewhat suggestive of bronchitis. His hypoxia resolved and he is now saturating well on room air. He is stable for discharge home to complete 5 days of Tamiflu. - ALLERGIES Allergies/Adverse Reactions: Allergies Allergy/AdvReac Type Severity Reaction Status Date / Time tetracycline [Tetracycline] AdvReac Mild Anxiety Verified 10/13/12 07:53 - MEDICATIONS Home Medications: Ambulatory Orders Medication Instructions Recorded Confirmed Ascorbic Acid [Vitamin C] 1,000 mg PO BID 10/13/12 07/08/19 Levothyroxine [Synthroid] 125 mcg PO DAILY 10/13/12 07/08/19 Rosuvastatin Calcium [Crestor] 5 mg PO .EVERY OTHER DAY 10/13/12 07/08/19 Tadalafil [Cialis] 5 mg PO DAILY PRN 10/13/12 07/08/19 Calcium Carbonate [Calcium] 600 mg PO DAILY 01/03/15 07/08/19 Dorzolamide HCl/Timolol Maleat 1 drops EACHEYE BID 01/03/15 07/08/19 [Dorzolamide-Timolol Eye Drops] Magnesium Oxide [Magnesium] 250 mg PO DAILY 01/03/15 07/08/19 Desonide [Desowen] 1 applic TOP BID PRN 07/07/19 07/08/19 Metronidazole 1% Gel [Metrogel] 1 applic TOP QPM 07/07/19 07/08/19 Trospium Chloride [Trospium 60 mg PO QPM 07/07/19 07/08/19 Chloride ER] Cholecalciferol (Vitamin D3) 3,000 unit PO DAILY 07/08/19 07/08/19 [Vitamin D3] Ferrous Sulfate 325 mg PO DAILY 07/08/19 07/08/19 Glucosamine HCl 1,500 mg PO DAILY 07/08/19 07/08/19 Ketoconazole 1 applic TOP DAILY 07/08/19 07/08/19 [place]-3/Dha/Epa/Fish Oil [Fish Oil 1 cap PO BID 07/08/19 07/08/19 1,000 mg Softgel] Ubidecarenone [Co Q-10] 100 mg PO DAILY 07/08/19 07/08/19 Oseltamivir [Tamiflu] 75 mg PO BID #6 capsule 07/09/19 - PHYSICAL EXAM AT DISCHARGE General Appearance: positive: No acute distress, Alert Eyes Bilateral: positive: Normal inspection ENT: positive: ENT inspection nml Neck: positive: Nml inspection Respiratory: positive: No respiratory distress, Rhonchi. negative: Wheezes, Rales Cardiovascular: positive: Regular rate & rhythm, No murmur. negative: Tachycardia, Bradycardia, Systolic murmur Abdomen: positive: Non-tender, No distention. negative: Tenderness Skin: positive: No rash, Warm, Dry Extremities: positive: Full ROM, Pedal edema (Trace pitting edema in the bilateral lower extremities.) Neurologic/Psychiatric: positive: Oriented x3. negative: Disoriented to person, Disoriented to place, Disoriented to time - LABS Result Diagrams: 07/09/19 06:09 07/09/19 06:09 - DIAGNOSTIC IMAGING Diagnostic Imaging Results: Final report reviewed - FOLLOW UP Follow Up: He was asked to follow-up with his primary care physician within 1 week. - TIME SPENT Time Spent in Discharge (Minutes): 33"
--- NOTE | 2019-07-09 10:35 | CT Report ---
Reason: Infleunza. Hypoxia. Tachycardia. Eval for PE. Procedure Date: 07/09/2019 Accession Number: [id number] / [id number] Procedure: CT - ANGIO CHEST W/WO CPT Code: Final Report FULL RESULT: EXAM: CT ANGIOGRAM CHEST EXAM DATE: 07/09/2019 09:08 AM. CLINICAL HISTORY: Influenza. Hypoxia. Tachycardia. Evaluate for pulmonary embolus. COMPARISON: CHEST 2 VIEW 07/07/2019 4:08 PM. TECHNIQUE: Routine helical imaging was performed through the chest in the pulmonary arterial phase. IV Contrast: 80 mL of Optiray 320. Reconstructions: Coronal 3-D MIP reconstructions. Sagittal and coronal. In accordance with CT protocol optimization, one or more of the following dose reduction techniques were utilized for this exam: automated exposure control, adjustment of mA and/or KV based on patient size, or use of iterative reconstructive technique. FINDINGS: Pulmonary Arteries: Diagnostic quality: Adequate through the segmental arteries. No evidence for acute or chronic pulmonary emboli. RV/LV is within normal limits. There is no interventricular septal bowing. There is no reflux of contrast material in the IVC. Lungs/Pleura: Marked bronchial wall thickening. Airway remains patent. No endobronchial lesions are noted. Dependent atelectasis. No pneumothorax or large effusions. Patchy areas of peribronchovascular groundglass opacities and subpleural reticulation are noted in all lobes. No evidence of cavitation, concerning mass, or lung nodule. Mediastinum: No cardiac enlargement or pericardial effusion. Multivessel coronary artery disease is noted. 1.4 cm left hilar node noted on image 5, 72. 1.4 cm subcarinal node on image 5, 67. 1.4 cm left hilar node on image 5, 66. Thoracic Aorta: Ascending thoracic aorta measures 4.3 x 4.3 cm at the main pulmonary artery level. Images acquired without gating. No mediastinal hematoma. Insufficient opacification to evaluate for thoracic aortic dissection. Upper Abdomen: No liver mass or intrahepatic bile duct dilation. Gallbladder is contracted. Incidental splenule. Limited evaluation of the upper abdomen is grossly unremarkable. Bones: No osteoblastic or osteolytic lesions. 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 Multilevel degenerative disk disease is noted in the thoracic spine. Gentle convexity of the right curvature of the thoracic spine noted. Other: Thyroid gland is atrophic and heterogeneous. No obvious thyroid nodule or mass. No supraclavicular or axillary lymphadenopathy. Remaining soft tissues of the chest wall are grossly unremarkable. IMPRESSION: 1. Normal pulmonary CT angiogram. No pulmonary emboli. 2. Multiple enlarged mediastinal and hilar nodes, likely reactive. 3. No cardiac enlargement. Multivessel coronary artery disease. No pericardial effusion. 4. Peribronchovascular groundglass opacities in subpleural reticulation compatible with the provided diagnosis of influenza. No cavitation, pulmonary nodule or pulmonary mass identified. 5. Extensive bronchial wall thickening without a focal endobronchial lesion. Findings likely represent superimposed bronchitis or reactive airway disease. RADIA
== END 2019-07-09 11:45 | disposition home or self-care (01) | DRG 195 ==
LOC: ED 15:41 → MS2 20:18
PROVIDERS: ADMIT Specialist; ATTEND Specialist
DX: J10.1 Influenza due to other identified influenza virus with other respiratory manifestations (principal); J40 Bronchitis, not specified as acute or chronic; G47.33 Obstructive sleep apnea (adult) (pediatric); R09.02 Hypoxemia; R00.0 Tachycardia, unspecified; E86.0 Dehydration; E03.9 Hypothyroidism, unspecified; E78.00 Pure hypercholesterolemia, unspecified; K59.09 Other constipation; H54.7 Unspecified visual loss; H40.9 Unspecified glaucoma; G89.29 Other chronic pain; M54.9 Dorsalgia, unspecified; M19.90 Unspecified osteoarthritis, unspecified site; N40.0 Benign prostatic hyperplasia without lower urinary tract symptoms; L40.9 Psoriasis, unspecified; Z79.82 Long term (current) use of aspirin; Z87.891 Personal history of nicotine dependence
CPT/HCPCS: 36415; 71046; 71275; 80048; 80053; 81003; 83605; 83690; 83735; 84100; 85025; 85379; 87040; 87275; 87276; 96361; 96374; 96376; 99285; A9270; Q9967; 81001; 87086

== ENCOUNTER 2022-12-19 08:00 | Outpatient (CLI) | payer MEDICARE, OTHER ==
[2022-12-19 16:04] LABS: BILIRUBIN,URINE NEGATIVE (NEGATIVE); GLUCOSE, URINE (UA) NEGATIVE (NEGATIVE); KETONES,URINE (UA) NEGATIVE (NEGATIVE); LEUKOCYTE ESTERASE, URINE NEGATIVE (NEGATIVE); NITRITE,URINE NEGATIVE (NEGATIVE); OCCULT BLOOD,URINE NEGATIVE (NEGATIVE); PH,URINE 5.5 PH (5.0-7.5); PROTEIN,URINE NEGATIVE (NEGATIVE); UROBILINOGEN,URINE 0.2 (NORMAL) E.U./dL (NORMAL)
[2022-12-19 16:07] LABS: CLARITY,URINE CLEAR (CLEAR)
[2022-12-19 16:17] LABS: BACTERIA,URINE None Seen /HPF (None Seen); RBC,URINE None Seen /HPF (0-5); SQUAMOUS EPITHELIAL CELL,UR NONE SEEN (<= Few); WBC,URINE 0-3 /HPF (0-3)
== END 2022-12-19 23:59 | disposition home or self-care (01) ==
LOC: LAB.R 08:00
PROVIDERS: ATTEND Urology
DX: R39.9 Unspecified symptoms and signs involving the genitourinary system (principal)
CPT/HCPCS: 81001; 87086

== ENCOUNTER 2023-06-26 22:43 | Emergency (ER) | payer MEDICARE, OTHER ==
--- NOTE | 2023-06-26 23:08 | ED Physician Documentation ---
PD HPI HEAD INJURY - Stated complaint Stated Complaint: FALL/HEAD LAC - Chief complaint Chief Complaint: Trauma Hd/Nk - History obtained from History obtained from: Patient - Additional information Additional information: HPI from patient. Patient was getting ready for bed tonight. As he was taking off his underwear, he lost his balance while his underwear was down and around his ankles, preventing him from writing himself. As result, he fell backwards and struck the back of his head on his dresser, sustaining scalp laceration as a result. He denies LOC. He has mild, generalized headache. He denies neck pain. He is not on any blood-thinning medication. PD PAST MEDICAL HISTORY - Past Medical History Past Medical History: Yes Cardiovascular: Hypertension, High cholesterol Respiratory: Sleep apnea, CPAP use Neuro: None Endocrine/Autoimmune: HyPOthyroidism GI: Chronic constipation : Benign prostate hypertrophy HEENT: Chronic vision loss, Glaucoma Psych: None Musculoskeletal: Osteoarthritis, Chronic back pain Derm: Psoriasis - Past Surgical History Past Surgical History: Yes General: Colonoscopy, Other HEENT: Cataracts, Tonsil/Adenoidectomy Derm: Other - Present Medications Home Medications: Ambulatory Orders Medication Instructions Recorded Confirmed Ascorbic Acid [Vitamin C] 1,000 mg PO DAILY 10/13/12 03/04/23 Levothyroxine [Synthroid] 125 mcg PO DAILY 10/13/12 03/04/23 Rosuvastatin Calcium [Crestor] 5 mg PO .EVERY OTHER DAY 10/13/12 03/04/23 Tadalafil [Cialis] 20 mg PO DAILY PRN 10/13/12 03/04/23 Calcium Carbonate [Calcium] 600 mg PO DAILY 01/03/15 03/04/23 Dorzolamide HCl/Timolol Maleat 1 drops EACHEYE BID 01/03/15 03/04/23 [Dorzolamide-Timolol Eye Drops] Magnesium Oxide [Magnesium] 500 mg PO DAILY 01/03/15 03/04/23 Desonide [Desowen] 1 applic TOP BID PRN 07/07/19 03/04/23 Metronidazole 1% Gel [Metrogel] 1 applic TOP QPM 07/07/19 03/04/23 Trospium Chloride [Trospium 60 mg PO QPM 07/07/19 03/04/23 Chloride ER] Cholecalciferol (Vitamin D3) 3,000 unit PO DAILY 07/08/19 03/04/23 [Vitamin D3] Ketoconazole 1 applic TOP DAILY 07/08/19 03/04/23 Ubidecarenone [Co Q-10] 200 mg PO DAILY 07/08/19 03/04/23 glucosamine HCL [Glucosamine HCl] 1,500 mg PO DAILY 07/08/19 03/04/23 Oseltamivir [Tamiflu] 75 mg PO BID #6 capsule 07/09/19 03/04/23 Ferrous Sulfate [Feosol] 325 mg PO DAILY 03/04/23 03/04/23 [place]-3S/Dha/Epa/Fish Oil [Fish 1 each PO DAILY 03/04/23 03/04/23 Oil 1,200 mg Softgel] [place] 1,000 mg PO DAILY 03/04/23 03/04/23 Tamsulosin HCl [Flomax] 0.4 mg PO DAILY PM 03/04/23 03/04/23 oxyBUTYnin chloride [Oxybutynin 5 mg PO DAILY 03/04/23 03/04/23 Chloride] - Allergies Allergies/Adverse Reactions: Allergies Allergy/AdvReac Type Severity Reaction Status Date / Time tetracycline [Tetracycline] AdvReac Mild Anxiety Verified 06/26/23 22:52 - Social History Does the pt smoke?: No Smoking Status: Never smoker Does the pt drink ETOH?: No Does the pt have substance abuse?: No - Immunizations Immunizations are current?: No - POLST Patient has POLST: No POLST Status: Full Code PD ED PE NORMAL - Vitals Vital signs reviewed: Yes - General General: Alert and oriented X 3, No acute distress, Well developed/nourished - HEENT HEENT: PERRL, EOMI - Neck Neck: No bony TTP - Neuro Neuro: Alert and oriented X 3 Eye Opening: Spontaneous Motor: Obeys Commands Verbal: Oriented GCS Score: 15 PD ED PE EXPANDED - HEENT HEENT: Other (mild TTP at/around laceration but no bony step-off) HEENT Visual: 1 - laceration (3 cm length) Results - Vitals Vitals: Oxygen O2 Source Room air Procedures - Laceration (location) Scalp Wound type: Linear, Into subcut fat, Clean Anesthesia: Lidocaine 1% Wound preparation: Chlorhexadine, Irrigated copiously NS Skin layer closure: Ronda Other: Patient tolerated well, No complications, Neurovascular intact, Tetanus UTD PD Medical Decision Making - ED course Complexity details: considered differential, d/w patient ED course: Traumatic scalp laceration repaired as per procedure note, above. Return prec autions are reviewed. There is no indication for emergent imaging at this time. Advised to follow-up with PCP in 7-10 days for staple removal. Departure - Departure Disposition: 01 Home, Self Care Clinical Impression: Scalp laceration Qualifiers: Encounter type: initial encounter Qualified Code(s): S01.01XA - Laceration without foreign body of scalp, initial encounter Condition: Good Instructions: ED Laceration Scalp Stitch Or Stap Comments: Your scalp laceration was closed with 6 ronda. Contact your primary care provider's office when they are next open to arrange for a follow-up appointment in 7 to 10 days for removal of the ronda. Forms: PCP List Discharge Date/Time: 06/27/23 00:50
[2023-06-26] MEDS: LIDOCAINE 1% 2 ML VIAL SUBQ STA (23:45)
[2023-06-27] MEDS: BACITRACIN ZINC OINT 1 PACKET TOP STA (00:35)
[2023-06-27 00:53] VITALS: BP 145/55; O2SAT 95
== END 2023-06-27 00:50 | disposition home or self-care (01) ==
LOC: ED 22:43
DX: S01.01XA Laceration without foreign body of scalp, initial encounter (principal); W18.30XA Fall on same level, unspecified, initial encounter; I10 Essential (primary) hypertension
CPT/HCPCS: 12002; 99282

== ENCOUNTER 2023-07-31 18:46 | Outpatient (CLI) | payer MEDICARE, OTHER | END 2023-07-31 18:47 | disposition EMS.NT | LOC: EMS 18:46 | DX: Z03.89 Encounter for observation for other suspected diseases and conditions ruled out (principal) ==